=== PATIENT | male | born 1935 | race Caucasian/White ===

== ENCOUNTER 2024-06-09 15:04 | Inpatient (IN) | payer OTHER ==
[~2024-06-09] VITALS: Ht 185.4 cm; Wt 75.2 kg
[2024-06-09 15:27] LABS: BASOPHILS ABSOLUTE AUTO 0.06 K/mm3 (0.00-0.23); BASOPHILS PERCENT AUTO 1 % (0-2); EOSINOPHILS PERCENT AUTO 3 % (0-6); Hematocrit 38.2 % (37.0-53.0); Hemoglobin 12.9 g/dL (13.5-17.5); IMMATURE GRAN ABSOLUTE AUTO 0.02 K/mm3 (0.00-0.10); IMMATURE GRAN PERCENT AUTO 0 % (0-1); LYMPHOCYTES ABSOLUTE AUTO 2.33 K/mm3 (0.84-5.20); LYMPHOCYTES PERCENT AUTO 31 % (21-46); MONOCYTES ABSOLUTE AUTO 0.84 K/mm3 (0.16-1.47); MONOCYTES PERCENT AUTO 11 % (4-13); Mean Corpuscular HGB 30.8 pg (26.0-34.0); Mean Corpuscular HGB Conc 33.8 g/dL (31.5-36.5); Mean Corpuscular Volume 91 fL (80-100); Mean Platelet Volume 9.1 fL (9.1-12.4); NEUTROPHILS ABSOLUTE AUTO 4.18 K/mm3 (1.96-9.15); NEUTROPHILS PERCENT AUTO 55 % (41-73); Platelet Count 222 K/mm3 (150-400); RDW Coefficient Variation 13.3 % (11.7-14.2); RDW Standard Deviation 44.9 fL (35.1-46.3); Red Blood Cell Count 4.19 M/mm3 (4.30-5.90); White Blood Cell Count 7.63 K/mm3 (4.00-11.30)
[2024-06-09 16:04] LABS: Albumin, Blood 3.5 g/dL (3.4-5.0); Albumin/Globulin Ratio 0.9 (0.8-1.8); Bilirubin, Total 0.4 mg/dL (0.1-1.0); Bun/Creatinine Ratio 20.3 (12.0-20.0); Calcium, Blood 9.3 mg/dL (8.5-10.1); Creatinine, Blood 1.28 mg/dL (0.60-1.20); Globulin, Blood 3.7 g/dL (2.2-4.0); Potassium, Blood 3.8 mmol/L (3.5-5.5); Total Protein, Blood 7.2 g/dL (6.4-8.2)
[2024-06-09] MEDS ORDERED: LOSARTAN POTASS25 M2 PO (19:31)
[2024-06-09] MEDS ORDERED: Dose Adjust by Pharmacy XX STA (20:04)
[2024-06-09] MEDS ORDERED: Heparin Sodium,Porcine/0.5 NS 500 ML IV SCH (20:05)
[2024-06-09] MEDS ORDERED: Heparin Sodium 5000 Units/ML 1ML MDV IV ONE (20:30)
[2024-06-09 21:19] LABS: Anti-Xa UFH, PHA Monitoring <0.10 IU/mL; International Normalized Ratio 0.95; Prothrombin Time Results 10.2 Sec (9.7-11.5)
[2024-06-09] MEDS ORDERED: NS 1,000 ML IV SCH (22:00)
[2024-06-09] MEDS ORDERED: Aspirin 325 MG Tab PO ONE (22:00)
[2024-06-09 23:00] VITALS: BP 146/89
--- NOTE | 2024-06-09 23:27 | NUR ---
TRANSFER NOTE THIS RN RECEIVED REPORT FROM SHANDA COTTO IN THE ED. PATIENT TRANSFERRED TO PCU WAS ABLE TO AMBULATE FROM [place] TO BED WITH STEADY GAIT. PT A&O X4. [place] AND USES ALIRIO ON PHONE THAT HELPS TRANSLATE WHAT PEOPLE ARE SAYING TO HIM. ABLE TO MAKE NEEDS KNOWN. SR ON MONITOR. BP STABLE. DENIES CHEST PAIN/PRESSURE AT THIS TIME. HEP GTT AND NS INFUSING PER EMAR. NPO. PT DECLINED TAKING CLOTHES OFF AND GETTING INTO GOWN. BED IN LOWEST POSITION AND CALL LIGHT WITHIN REACH.
[2024-06-10 03:10] VITALS: BP 124/91
[2024-06-10 03:35] LABS: BASOPHILS ABSOLUTE AUTO 0.04 K/mm3 (0.00-0.23); BASOPHILS PERCENT AUTO 1 % (0-2); EOSINOPHILS ABSOLUTE AUTO 0.11 K/mm3 (0.00-0.68); EOSINOPHILS PERCENT AUTO 2 % (0-6); Hematocrit 32.8 % (37.0-53.0); Hemoglobin 11.3 g/dL (13.5-17.5); IMMATURE GRAN ABSOLUTE AUTO 0.02 K/mm3 (0.00-0.10); IMMATURE GRAN PERCENT AUTO 0 % (0-1); LYMPHOCYTES ABSOLUTE AUTO 1.46 K/mm3 (0.84-5.20); LYMPHOCYTES PERCENT AUTO 20 % (21-46); MONOCYTES ABSOLUTE AUTO 0.79 K/mm3 (0.16-1.47); MONOCYTES PERCENT AUTO 11 % (4-13); Mean Corpuscular HGB 31.1 pg (26.0-34.0); Mean Corpuscular HGB Conc 34.5 g/dL (31.5-36.5); Mean Corpuscular Volume 90 fL (80-100); Mean Platelet Volume 9.5 fL (9.1-12.4); NEUTROPHILS ABSOLUTE AUTO 5.02 K/mm3 (1.96-9.15); NEUTROPHILS PERCENT AUTO 68 % (41-73); Platelet Count 190 K/mm3 (150-400); RDW Coefficient Variation 13.3 % (11.7-14.2); RDW Standard Deviation 44.5 fL (35.1-46.3); Red Blood Cell Count 3.63 M/mm3 (4.30-5.90); White Blood Cell Count 7.44 K/mm3 (4.00-11.30)
[2024-06-10 04:03] LABS: Albumin, Blood 3.1 g/dL (3.4-5.0); Anion Gap 7 mmol/L (3-11); Blood Urea Nitrogen 29 mg/dL (8-24); Bun/Creatinine Ratio 26.4 (12.0-20.0); CO2, Blood 28 mmol/L (21-32); Calcium, Blood 8.8 mg/dL (8.5-10.1); Chloride, Blood 109 mmol/L (98-108); Glomerular Filtration Rate 65 (60-); Glucose, Blood 105 mg/dL (70-99); Magnesium, Blood 2.2 mg/dL (1.6-2.4); Phosphorus, Blood 3.3 mg/dL (2.5-4.9); Potassium, Blood 4.2 mmol/L (3.5-5.5); Sodium, Blood 140 mmol/L (136-145)
[2024-06-10] MEDS ORDERED: Dose Adjust by Pharmacy XX STA (04:41)
--- NOTE | 2024-06-10 04:50 | NUR ---
SHIFT SUMMARY SEE PREVIOUS NOTE PT REPORTS NO CHEST PAIN SINCE ARRIVAL TO UNIT. TRENDING TROPONINS. LAST TROPONIN [id number], TROPONIN HAS NOT PEAKED YET. VSS. HEP GTT INFUSING PER EMAR. PT CONTINUES TO DECLINE TO TAKE CLOTHES OFF. CARDIOLOGY CONSULT PLACED VIA ANSWERING SERVICE. BED IN LOWEST POSITION AND CALL LIGHT WITHIN REACH. THIS RN WILL REPORT TO ONCOMING DAYSHIFT RN.
[2024-06-10] MEDS ORDERED: Aspirin 81 MG Chew PO SCH (09:00)
[2024-06-10] MEDS ORDERED: Losartan Potassium 25 MG Tab PO SCH (09:00)
[2024-06-10] MEDS ORDERED: Atorvastatin 40 MG Tab PO SCH (09:00)
[2024-06-10 09:54] VITALS: BP 162/66
[2024-06-10] MEDS ORDERED: ATOR40TA PO (10:39)
[2024-06-10] MEDS ORDERED: ASPI81CH PO (10:39)
[2024-06-10 11:52] VITALS: BP 135/74
--- NOTE | 2024-06-10 12:53 | NUR ---
DISCHARGE SUMARY PT A&Ox4, CALLS AND COMMUNICATES NEEDS APPROPRIATELY. BP STABLE, SINUS 60's, DENIES CP/PRESSURE. SpO2> 92% RA, DENIES SOB. IND IN ROOM. DISCHARGE INSTRUCTION PROVIDED WITH FAMILY AT BEDSIDE. PT TAKEN OUT VIA WHEELCHAIR BY THIS RN AT APPROXIMATELY 1240. ALL PT BELONGINGS WITH FAMILY.
== END 2024-06-10 12:36 | disposition home or self-care (01) | DRG 282 ==
LOC: ER 15:04 → PCU 15:05
PROVIDERS: Emergency Medicine; Nurse Practitioner Acute Care; Student in an Organized Health Care Education/Training Program; ADMIT Student in an Organized Health Care Education/Training Program
DX: I21.4 Non-ST elevation (NSTEMI) myocardial infarction (principal); R00.1 Bradycardia, unspecified; Z66 Do not resuscitate; R79.89 Other specified abnormal findings of blood chemistry; R73.9 Hyperglycemia, unspecified; I12.9 Hypertensive chronic kidney disease with stage 1 through stage 4 chronic kidney disease, or unspecified chronic kidney disease; N18.2 Chronic kidney disease, stage 2 (mild); Z53.8 Procedure and treatment not carried out for other reasons; Z90.49 Acquired absence of other specified parts of digestive tract
CPT/HCPCS: 36415; 71046; 80053; 80069; 83036; 83690; 83735; 84484; 85025; 85520; 85610; 85730; 93005; 93010; 99285-25; A9270; J1644; J7030

== ENCOUNTER 2024-06-11 20:19 | Inpatient (IN) | payer OTHER ==
[~2024-06-11] VITALS: Ht 185.4 cm; Wt 71.6 kg
[~2024-06-11 20:19] MED LIST: ASPI81CH PO; ATOR40TA PO; LOSARTAN POTASS25 M2 PO
[2024-06-11 20:44] LABS: BASOPHILS ABSOLUTE AUTO 0.04 K/mm3 (0.00-0.23); BASOPHILS PERCENT AUTO 0 % (0-2); EOSINOPHILS ABSOLUTE AUTO 0.18 K/mm3 (0.00-0.68); EOSINOPHILS PERCENT AUTO 2 % (0-6); Hematocrit 37.8 % (37.0-53.0); Hemoglobin 12.6 g/dL (13.5-17.5); IMMATURE GRAN ABSOLUTE AUTO 0.03 K/mm3 (0.00-0.10); IMMATURE GRAN PERCENT AUTO 0 % (0-1); LYMPHOCYTES ABSOLUTE AUTO 1.46 K/mm3 (0.84-5.20); LYMPHOCYTES PERCENT AUTO 16 % (21-46); MONOCYTES ABSOLUTE AUTO 1.36 K/mm3 (0.16-1.47); MONOCYTES PERCENT AUTO 15 % (4-13); Mean Corpuscular HGB 30.7 pg (26.0-34.0); Mean Corpuscular HGB Conc 33.3 g/dL (31.5-36.5); Mean Corpuscular Volume 92 fL (80-100); Mean Platelet Volume 9.4 fL (9.1-12.4); NEUTROPHILS ABSOLUTE AUTO 6.33 K/mm3 (1.96-9.15); NEUTROPHILS PERCENT AUTO 67 % (41-73); Platelet Count 199 K/mm3 (150-400); RDW Coefficient Variation 13.4 % (11.7-14.2); RDW Standard Deviation 45.6 fL (35.1-46.3)
[2024-06-11 21:03] LABS: Albumin, Blood 3.6 g/dL (3.4-5.0); Bilirubin, Total 0.4 mg/dL (0.1-1.0); Bun/Creatinine Ratio 23.1 (12.0-20.0); Calcium, Blood 9.4 mg/dL (8.5-10.1); Creatinine, Blood 1.21 mg/dL (0.60-1.20); Globulin, Blood 3.5 g/dL (2.2-4.0); Potassium, Blood 4.2 mmol/L (3.5-5.5); Total Protein, Blood 7.1 g/dL (6.4-8.2)
[2024-06-11] MEDS ORDERED: Nitroglycerin 0.4 MG SUBL SL PRN (23:15)
[2024-06-12] VITALS (12 sets, daily range): BP systolic 106–147; BP diastolic 53–77
[2024-06-12 00:38] LABS: International Normalized Ratio 0.96; Prothrombin Time Results 10.3 Sec (9.7-11.5)
[2024-06-12 01:01] LABS: Anti-Xa UFH, PHA Monitoring <0.10 IU/mL
[2024-06-12] MEDS ORDERED: Heparin Sodium,Porcine/0.5 NS 500 ML IV SCH (01:10)
[2024-06-12 05:26] LABS: BASOPHILS ABSOLUTE AUTO 0.04 K/mm3 (0.00-0.23); BASOPHILS PERCENT AUTO 1 % (0-2); EOSINOPHILS ABSOLUTE AUTO 0.17 K/mm3 (0.00-0.68); EOSINOPHILS PERCENT AUTO 2 % (0-6); Hematocrit 33.5 % (37.0-53.0); Hemoglobin 11.7 g/dL (13.5-17.5); IMMATURE GRAN ABSOLUTE AUTO 0.03 K/mm3 (0.00-0.10); IMMATURE GRAN PERCENT AUTO 0 % (0-1); LYMPHOCYTES ABSOLUTE AUTO 1.29 K/mm3 (0.84-5.20); LYMPHOCYTES PERCENT AUTO 17 % (21-46); MONOCYTES ABSOLUTE AUTO 1.13 K/mm3 (0.16-1.47); MONOCYTES PERCENT AUTO 15 % (4-13); Mean Corpuscular HGB 31.7 pg (26.0-34.0); Mean Corpuscular HGB Conc 34.9 g/dL (31.5-36.5); Mean Corpuscular Volume 91 fL (80-100); Mean Platelet Volume 9.6 fL (9.1-12.4); NEUTROPHILS ABSOLUTE AUTO 5.16 K/mm3 (1.96-9.15); NEUTROPHILS PERCENT AUTO 66 % (41-73); Platelet Count 191 K/mm3 (150-400); RDW Coefficient Variation 13.4 % (11.7-14.2); RDW Standard Deviation 44.2 fL (35.1-46.3); Red Blood Cell Count 3.69 M/mm3 (4.30-5.90); White Blood Cell Count 7.82 K/mm3 (4.00-11.30)
[2024-06-12 05:50] LABS: Bun/Creatinine Ratio 21.7 (12.0-20.0); Calcium, Blood 8.8 mg/dL (8.5-10.1); Creatinine, Blood 1.06 mg/dL (0.60-1.20); Potassium, Blood 3.9 mmol/L (3.5-5.5)
[2024-06-12] MEDS ORDERED: Dose Adjust by Pharmacy XX STA (08:24)
[2024-06-12] MEDS ORDERED: Atorvastatin 40 MG Tab PO SCH (09:00)
[2024-06-12] MEDS ORDERED: Aspirin 81 MG Chew PO SCH (09:00)
[2024-06-12] MEDS ORDERED: Verapamil HCL 2.5 MG/ML 2ML Injection ONE (09:17)
[2024-06-12] MEDS ORDERED: Heparin Sodium 1000 Units/ML 10ML MDV ONE (09:17)
[2024-06-12] MEDS ORDERED: Nitroglycerin 2 MG/20 ML BTL ONE (09:18)
[2024-06-12] MEDS ORDERED: NS 250 ML IV ONE (09:18)
[2024-06-12] MEDS ORDERED: NS 1,000 ML IV ONE ×2 (09:18→09:20)
[2024-06-12] MEDS ORDERED: Midazolam HCl 1MG / ML 2ML Vial ONE (09:20)
[2024-06-12] MEDS ORDERED: FentaNYL Citrate 50 MCG/ML 2 ML Injection ONE (09:20)
--- NOTE | 2024-06-12 10:50 | NUR ---
TX SUMMARY PT ADMITTED TO PCU 17 FROM THE [facility]. THE PT ARRIVED ABOUT 1034. HE HAS RIGHT RADIAL ACCESS AND CAME TO THE UNIT WITH 12CC'S IN THE TR BAND. THE PT'S FINGER WERE VERY COOL TOO TOUCH AND CAP REFILL <3 SEC. 2CC OF AIR WERE REMOVED. SEQUENCE VITAL SIGNS SET UP. PT IS ON RA AND SP02 >95% ON TELE HE IS SB 50'S. BP STABLE. 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 HE HEARS BETTER IN HIS LEFT EAR AND HE HAS A PHONE ALIRIO CONNECTED TO HIS HEARING AIDS THAT COPIES WHAT IS SAID SO HE CAN READ WHAT PEOPLE ARE TELLING HIM. PT'S SON AND DAUGHTER N LAW ACCOMPANIED THE PT TO BEDSIDE AND ASSISTED WITH PT HX. DR. REICH CAME TO BEDSIDE AND UPDATED FAMILY ON PLAN FOR MEDICATION MANAGEMENT. SEE NOTES FOR UPDATES.
[2024-06-12] MEDS ORDERED: Isosorbide Mononitrate 30 MG TABCR PO SCH (15:00)
--- NOTE | 2024-06-12 15:38 | NUR ---
TR BAND FULLY RECOVERED AT SITE W/O HEMATOMA OR BLEEDING. NON TENDER. CLEANED W/ CHOLRAHEXADINE AND TEGADERM PLACED. THE PT'S ARM BOARD IS INTACT. VS STABLE.
[2024-06-13 04:31] VITALS: BP 109/65
[2024-06-13 05:06] LABS: BASOPHILS ABSOLUTE AUTO 0.05 K/mm3 (0.00-0.23); BASOPHILS PERCENT AUTO 1 % (0-2); EOSINOPHILS ABSOLUTE AUTO 0.17 K/mm3 (0.00-0.68); EOSINOPHILS PERCENT AUTO 2 % (0-6); Hematocrit 35.7 % (37.0-53.0); Hemoglobin 12.1 g/dL (13.5-17.5); IMMATURE GRAN ABSOLUTE AUTO 0.03 K/mm3 (0.00-0.10); IMMATURE GRAN PERCENT AUTO 0 % (0-1); LYMPHOCYTES ABSOLUTE AUTO 1.21 K/mm3 (0.84-5.20); LYMPHOCYTES PERCENT AUTO 16 % (21-46); MONOCYTES ABSOLUTE AUTO 0.94 K/mm3 (0.16-1.47); MONOCYTES PERCENT AUTO 12 % (4-13); Mean Corpuscular HGB Conc 33.9 g/dL (31.5-36.5); Mean Corpuscular Volume 92 fL (80-100); Mean Platelet Volume 9.8 fL (9.1-12.4); NEUTROPHILS PERCENT AUTO 69 % (41-73); Platelet Count 190 K/mm3 (150-400); RDW Coefficient Variation 13.3 % (11.7-14.2); RDW Standard Deviation 44.6 fL (35.1-46.3)
--- NOTE | 2024-06-13 05:12 | NUR ---
SHIFT SUMMARY PATIENT IS A+O X4, ABLE TO MAKE NEEDS KNOWN, REPOSTIONS SELF IN BED. SINUS DEMAR 50-60S ON TELE, DENIES CHEST PAIN OR PRESSURE. ON ROOM AIR SATURATING ABOVE 94%. TR BAND RECOVERED AND REMAINS FREE OF HEMATOMA, BRUSING, OR PAIN, PULSES INTACT. PATIENT IS CURRENTLY AWAKE SITTING AT BEDSIDE READING ON HIS PHONE. PATIENT IS EXTERMLY [place] EVEN WITH HEARING AIDS IN. CALL LIGHT IS IN REACH, WILL CONTINUE TO TREAT.
[2024-06-13 05:56] LABS: Albumin, Blood 3.2 g/dL (3.4-5.0); Albumin/Globulin Ratio 0.9 (0.8-1.8); Bilirubin, Total 0.7 mg/dL (0.1-1.0); Creatinine, Blood 1.2 mg/dL (0.60-1.20); Globulin, Blood 3.5 g/dL (2.2-4.0); Potassium, Blood 4.1 mmol/L (3.5-5.5); Total Protein, Blood 6.7 g/dL (6.4-8.2)
[2024-06-13 07:00] VITALS: BP 117/70
[2024-06-13 08:47] LABS: CHOL/HDL RATIO 2.7; Cholesterol 178 mg/dL (50-200); HDL Cholesterol 67 mg/dL (>39); LDL/HDL RATIO 1.5; Low Density Lipoprotein Chol 97 mg/dL (0-110); Triglycerides 69 mg/dL (30-160); Very Low Density Lipoprot Chol 13 mg/dL (6-32)
[2024-06-13] MEDS ORDERED: Clopidogrel Bisulfate 75 MG Tab PO SCH (09:00)
[2024-06-13] MEDS ORDERED: CLOP75 PO (09:52)
[2024-06-13] MEDS ORDERED: Isosorbide Mono30 MG PO (09:54)
--- NOTE | 2024-06-13 10:31 | NUR ---
ASSUMPTION OF CARE/DISCHARGE this rn assumed care at 0700. vital signs stable. tele sinus rhythm 60s. patient is alert and oriented x4. neuro is intact. hard of hearing and has hearing aides and phone transcriptor. denies pain, chest pain/pressure or shortness of breath. see shift assessment for further detials. md lara in the room and went over discharge medications and follow up plan. this rn went over new medications, dose increase in medications, and medications to stop with patient and patient son, jonathan and daughter in law connor. patient and family verbalized understanding. 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 patient verbalized understanding. medications faxed to [facility]. patient left with all belonings and in no distress.
== END 2024-06-13 10:28 | disposition home or self-care (01) | DRG 281 ==
LOC: ER 20:19 → PCU 20:20 → ERHOLD 20:20 → PCU 20:21 → ERHOLD 06-12 10:04 → PCU 06-12 10:04 → ERHOLD 06-12 15:55 → PCU 06-12 15:55
PROVIDERS: Emergency Medicine; Student in an Organized Health Care Education/Training Program; ADMIT Internal Medicine
PROC: 4A023N7 Measurement of Cardiac Sampling and Pressure, Left Heart, Percutaneous Approach (ICD-10-PCS; principal; 2024-06-12)
PROC: B2111ZZ Fluoroscopy of Multiple Coronary Arteries using Low Osmolar Contrast (ICD-10-PCS; 2024-06-12)
DX: I21.4 Non-ST elevation (NSTEMI) myocardial infarction (principal); N17.9 Acute kidney failure, unspecified; R00.1 Bradycardia, unspecified; I12.9 Hypertensive chronic kidney disease with stage 1 through stage 4 chronic kidney disease, or unspecified chronic kidney disease; N18.2 Chronic kidney disease, stage 2 (mild); D63.1 Anemia in chronic kidney disease; R74.01 Elevation of levels of liver transaminase levels; Z79.82 Long term (current) use of aspirin; Z79.899 Other long term (current) drug therapy; Z90.49 Acquired absence of other specified parts of digestive tract; Z90.89 Acquired absence of other organs; Z98.890 Other specified postprocedural states; Z95.1 Presence of aortocoronary bypass graft
CPT/HCPCS: 36415; 71046; 76937; 80048; 80053; 80061; 83690; 84484; 85025; 85520; 85610; 85730; 93005; 93010; 93306; 93454; 96365; 96366; 99152; 99285-25; A9270; C1769; C1887; C1894; G0378; J1644; J2250; J3010; J7030; J7050; Q9967